=== PATIENT | female | born 1975 | race Caucasian/White ===

== ENCOUNTER 2016-11-13 09:14 | Emergency (ER) | payer OTHER ==
[~2016-11-13] VITALS: Ht 160 cm; Wt 79.5 kg
[2016-11-13 09:24] VITALS: BP 174/104; PULSE 95; RESP 12; O2SAT 98
--- NOTE | 2016-11-13 09:47 | ED.REPORT ---
HPI-Extremity Problem Lower Date of Service Nov 13, 2016 ED Provider: Albertina Macias MD Patient is a 41 year old female with a history of hypertension and pseudo- seizures who presents to the ED complaining of right knee pain onset last night after falling. When she fell she reports feeling several pops. She tried to ambulate and felt 2 more pops. The patient states that she went dancing last night and fell. The patient was seen at [facility] this morning but left after they wouldn't give her medications for her high blood pressure. Nursing Notes Stated Complaint: KNEE PAIN Chief Complaint: Extremity Trauma Nursing Notes Reviewed: Yes Allergies: Coded Allergies: No Known Allergies (Unverified Allergy, Unknown, 09/24/14) Scheduled PRN Tramadol (Tramadol) 50 Mg Tablet 50-100 MG PO QID PRN PRN For Pain General Time Seen by MD: 09:35 Chief Complaint Knee injury right Hx Obtained From: Patient Arrived By: Walk-in Onset Occurred: Yesterday Symptom Duration: Since onset Caused by: Fall on ground Location: : Knee right Quality: Painful Severity: Current: Moderate Associated with: Reports: "Pop" felt or heard Exacerbated by: Movement Recent Healthcare: Recent doctor visit Similar Sx Previous: No Past Medical History Past Medical History pseudo-seizures depression fibromyalgia PTSD anxiety Reports: Hypertension Past Surgical History ankle surgery Reports: Cholecystectomy Smoking History Unknown if Ever Smoker Social History Alcohol Use: Denies alcohol use Drug Use: Denies drug use Occupation lives with friend and children, no work or school Ambulatory Status Independent Review of Systems Constitutional: Denies: Chills, Fever Musculoskeletal: Reports: Extremity pain Skin: Denies Itching, Denies Rash Neurologic: Denies: Numbness, Problem walking, Weakness Complete sys rev & neg: except as marked. Respiratory: Denies: Non-productive cough, Shortness of breath Physical Exam Initial Vital Signs Vital Signs (First) Date Time Temp Pulse Resp B/P Pulse Ox O2 Delivery O2 Flow Rate FiO2 11/13/16 09:24 36.4 95 12 174/104 98 Room Air Initial VS: Reviewed Lower Extremity / Pelvis / MS: No deformity, Neurologic intact, Vascular intact Right Knee: Positive: ROM painful, Swelling present... (Mild), Tenderness present... Ankle / Foot: Atraumatic, Inspection NL, No deformity General/Constitutional: Awake, Alert Respiratory / Chest: Atraumatic, No respiratory distress Skin: Atraumatic, Color NL, No rash, Warm, Dry Neurologic: Oriented X3, Speech NL, No motor deficits, No sensory deficits Head / Eyes: Atraumatic, Normocephalic, PERRL, EOMI Upper Extremity / MS: Atraumatic, Full range of motion Psychiatric: Affect NL, Mood NL Re-Eval/Medical Decision Med Decision/Clinical Course Seen at 5:30 this morning at [facility]. X-ray of the knee was done. She was upset and anxious because they were not willing to treat her blood pressure and her mother had a stroke because of blood pressure issues. She herself has pseudoseizures because of her high blood pressure. She is recently started on mirtazapine for anxiety has not taken out this morning. Still hurting significantly then he is becoming more swollen and she is having trouble even keeping ice on it because it hurts so much. Did review records from [facility]. Also reviewed x-ray with [facility]. She does have significantly elevated blood pressure will give her her morning metoprolol mirtazapine tramadol ibuprofen and reevaluate. Recommended knee immobilizer if she is able to tolerated it encouraged her to keep the ice on the knee. She was out drinking and dancing last night. Declines a breathalyzer this morning but has called a friend to come pick her up after evaluation today so she is not driving while still seemingly intoxicated Source of Hx: Old records Summary of Info: X-ray of right knee from [facility] on 11/13/16: Findings: A small join effusion is present. There is no visible fracture. The alignment is normal. No degenerative changes. Electronically signed by: Jaxson Alvarez MD 11/13/16 at 0812 X-ray of the right TIB/FIB from [facility] on 11/13/16: Findings: No acture fracture of the tibia or fibula is present. Mild degenerative changes involve the ankle joint. There is an acessory ossicle adjacent to the tip of the lateral malleolus. The ankle alignment is normal. The lateral view of the knee suggest a small joint effusion. There is no associated fracture. No degenerative changes. Normal alignment. Electronically signed by: Jaxson Alvarez MD 11/13/16 at 0720 Re-Evaluation/Progress #1: Time of Eval: 11:07 Re-Evaluation/Progress Note: Discussed X-ray results from [facility] Re-Evaluation/Progress #2: Time of Eval: 12:29 Re-Evaluation/Progress Note: Discussed plan for discharge. Patient understands and agrees to the plan. All questions were addressed. Counseled Regarding: Diagnosis, Lab results, Need for follow-up, When/why to return to ED Discharge & Departure Impression: Primary Impression: Strain of right knee Encounter type: initial encounter Qualified Code: S86.911A - Strain of unspecified muscle(s) and tendon(s) at lower leg level, right leg, initial encounter Additional Impressions: Effusion, right knee Hypertension Hypertension type: unspecified secondary hypertension Qualified Code: I15.9 - Secondary hypertension, unspecified Anxiety Disposition: Home Discharge Condition All VS Reviewed: Yes Condition: Stable Patient Instructions: Knee Pain (ED), Crutch Instructions (ED) Additional Instructions: Your X-ray was normal and reassuring. There was no evidence of a fracture. You can expect it to be increasingly sore in the next 24-48 hours. You can also try icing for 30 minutes at a time to help with the pain. You can take Tramadol as needed for severe pain. Do not drink alcohol or drive while taking the pain medication. Follow up with the referred orthopedic surgeon in a week if your symptoms do not improve Return to the emergency department if you develop any new or concerning symptoms. Referrals: OTHER,PHYSICIAN (PCP) Reji Barr DO 1 Week Scribe Attestation Portions of this note were transcribed by Mayra Castro. I, Dr. Macias personally performed the history, physical exam and medical decision-making; I reviewed and confirmed the accuracy of the information in the transcribed note. Signed: Osman Jimenez, 11/13/2016 copies to: Reji Barr Shawna L MD Nov 13, 2016 09:47 PATRICE GOMEZ Nov 13, 2016 11:04
[2016-11-13 11:18] VITALS: BP 187/124
[2016-11-13 12:18] VITALS: BP 172/113; PULSE 77; RESP 15; O2SAT 98
[2016-11-13] MEDS ORDERED: TRAM50TA2 PO (12:36)
[2016-11-13 12:45] VITALS: BP 172/113; PULSE 77; RESP 15; O2SAT 98
== END 2016-11-13 12:46 | disposition home or self-care (01) ==
LOC: SED 09:14
DX: S86.911A Strain of unspecified muscle(s) and tendon(s) at lower leg level, right leg, initial encounter (principal); M25.461 Effusion, right knee; I15.9 Secondary hypertension, unspecified; W18.30XA Fall on same level, unspecified, initial encounter; Y93.41 Activity, dancing; Y92.009 Unspecified place in unspecified non-institutional (private) residence as the place of occurrence of the external cause; Y99.8 Other external cause status; F41.9 Anxiety disorder, unspecified; F32.9 Major depressive disorder, single episode, unspecified; F43.10 Post-traumatic stress disorder, unspecified

== ENCOUNTER 2017-01-01 10:07 | Emergency (ER) | payer OTHER ==
[~2017-01-01] VITALS: Ht 160 cm; Wt 77.3 kg
[~2017-01-01 10:07] MED LIST: TRAM50TA2 PO
[2017-01-01 10:11] VITALS: BP 142/90; PULSE 62; RESP 16; O2SAT 99
[2017-01-01] MEDS ORDERED: HYDR12.5 PO (10:16)
[2017-01-01] MEDS ORDERED: TRAZ150T72 PO (10:16)
[2017-01-01] MEDS ORDERED: METO50TA3 PO (10:16)
--- NOTE | 2017-01-01 10:19 | ED.REPORT ---
HPI-Extremity Problem Lower Date of Service Jan 01, 2017 ED Provider: Sabino Ha MD Patient is a 41 year old female with a hx of HTN who presents ot the ED complaining of R knee pain for that last 6 weeks that is worse last night and this morning s/p her "knee cap moved over" and she heard a "pop". Associated symptoms include increased swelling. She denies numbness, tingling, or any other symptoms. She denies falling or striking her knee. Pt is awaiting an MRI due to a possible torn meniscus in her R knee. Her original injury occured on November 13 when she was dancing, pivoted to the R, felt a pop, and fell to the ground. She has been using a brace at crutches. She takes tramadol and Ibuprofen for her pain. Nursing Notes Stated Complaint: RIGHT KNEE INJURY Chief Complaint: Extremity Trauma Nursing Notes Reviewed: Yes Allergies: Coded Allergies: Sulfa (Sulfonamide Antibiotics) (Verified Allergy, Severe, hives, 01/01/17) Scheduled Hydrochlorothiazide (Hydrochlorothiazide) 12.5 Mg Capsule 12.5 MG PO DAILY Metoprolol Tartrate (Metoprolol Tartrate) 50 Mg Tablet 50 MG PO BID Trazodone (Trazodone) 150 Mg Tablet 150 MG PO HS Scheduled PRN Hydrocodone-Acetaminophen 5-325 mg (Hydrocodone-Acetaminophen 5-325 mg) 1 Each Tablet 1 TABLET PO Q4H PRN PRN For Pain Tramadol (Tramadol) 50 Mg Tablet 50-100 MG PO QID PRN PRN For Pain General Time Seen by MD: 10:18 Chief Complaint Knee injury right Hx Obtained From: Patient Arrived By: Wheelchair Onset Occurred: Yesterday Symptom Duration: Since onset Location: : Knee right Quality: Painful Severity: Current: Moderate Severity: Maximum: Moderate Associated with: Reports: Swelling Exacerbated by: Range of motion, Movement Relieved by: Ice, Immobilization, OTC medications, Prescription meds Immunizations: Unknown Recent Healthcare: Recent doctor visit Past Medical History Past Medical History pseudo-seizures depression fibromyalgia PTSD anxiety Reports: Hypertension Past Surgical History ankle surgery Reports: Cholecystectomy Smoking History Unknown if Ever Smoker Social History Alcohol Use: "Social" Drug Use: Denies drug use Occupation lives with friend and children, no work or school Ambulatory Status Independent Review of Systems Review of Systems Note: -tingling Musculoskeletal: Reports: Joint pain, Joint swelling Neurologic: Reports: Problem walking (secondary to pain ), Denies: Numbness Complete sys rev & neg: except as marked. Physical Exam Initial Vital Signs Vital Signs (First) Date Time Temp Pulse Resp B/P Pulse Ox O2 Delivery O2 Flow Rate FiO2 01/01/17 10:11 36.5 62 16 142/90 99 Room Air Initial VS: Reviewed, Vital signs normal Head / Eyes: Atraumatic, Normocephalic Neck: Full range of motion Respiratory: Breath sounds normal, Clear to auscultation, No respiratory distress Cardiovascular: Regular rate & rhythm, Heart sounds normal, Intact distal pulses Abdomen / GI: Soft, Non-tender, No distention Skin: Warm, Dry Neurologic: Alert, Oriented, Nonfocal Lower Extremity / Pelvis / MS: Neurologic intact, Vascular intact Mild swelling of R knee Knee cap not dislocated tender about the lateral meniscus No redness, warmth, or signs of septic arthritis Ankle / Foot: Inspection NL, Neurologic intact, Vascular intact Re-Eval/Medical Decision Med Decision/Clinical Course Patient is a 41 year old female with a hx of HTN who presents ot the ED complaining of R knee pain for that last 6 weeks that is worse last night and this morning s/p her "knee cap moved over" and she heard a "pop". Associated symptoms include increased swelling. She denies numbness, tingling, or any other symptoms. She denies falling or striking her knee. Pt is awaiting an MRI due to a possible torn meniscus in her R knee. Her original injury occured on November 13 when she was dancing, pivoted to the R, felt a pop, and fell to the ground. She has been using a brace at crutches. She takes tramadol and Ibuprofen for her pain. Here in the emergency department the patient is afebrile with stable vital signs and in no apparent distress. Examination of the knee reveals no evidence of patellar dislocation though she describes what sounds like possible patellar subluxation. Most of her history is suggestive of a meniscal injury and she is already seen an orthopedic surgeon who has clinically diagnosed her with a meniscal injury. She is previously had an x- ray demonstrated no acute fractures. She has a mild swelling of her need though there is no warmth, redness, fever or history suggestive of septic arthritis. She is neurovascularly intact in the affected extremity and there are no clinical findings suggestive of DVT. I discussed with the patient we could obtain an x-ray today but that would likely not be of much diagnostic utility. She does not desire another x-ray. She was treated with Toradol and oxycodone for pain. Her knee was immobilized. She already has crutches. She was provided with a limited supply of [place] for pain. She will continue NSAIDs as well. She will follow up with her orthopedic surgeon on an outpatient basis and is currently awaiting an outpatient MRI. The patient is comfortable with this plan. Prior to discharge follow-up and return precautions were reviewed in detail with the patient who verbalized understanding and agreement with the plan. The patient was discharged in stable condition. Re-Evaluation/Progress : Time of Eval: 10:39 Re-Evaluation/Progress Note: Discussed plan for rigid knee brace, crutches, and decreased weight bearing. Offered xray which pt declines. Discussed plan for discharge. Patient understands and agrees with plan. All questions addressed at this time. Counseled Regarding: Diagnosis, Need for follow-up, When/why to return to ED Discharge & Departure Impression: Primary Impression: Right knee pain Chronicity: unspecified Qualified Code: M25.561 - Pain in right knee Additional Impressions: Injury of meniscus of right knee Encounter type: subsequent encounter Qualified Code: S83.91XD - Sprain of unspecified site of right knee, subsequent encounter Swelling of right knee joint Disposition: Home Discharge Condition All VS Reviewed: Yes Condition: Stable Additional Instructions: Thank you for seeking care at the emergency room. It is difficult for us to make definitive diagnoses in the ED but we believe that you are experiencing an exacerbation of pain from your knee injury. Our primary goal today in the ED was to evaluate you for any life-threatening conditions. Your evaluation was reassuring. Immobilize your knee using the rigid brace. Avoid bearing weight and use crutches for mobility. Use rest, ice, and elevation to help with swelling. Please use Ibuprofen (up to 600mg, 3 times a day) for pain. Stop using Ibuprofen if you experience upset stomach. You will be discharged with a prescription for Vicodin. Use this for more extreme pain. Please see precautions below. You should follow-up with your primary doctor in the next week. You should return to the ED immediately if you develop fevers, vomiting, cough, shortness of breath, chest pain, lightheadedness, weakness, numbness, increased swelling, redness, warmth, or any other concerning signs or symptoms. Thank you for letting us partake in your care today. You have been prescribed a narcotic for pain relief. These drugs are usually combined with acetaminophen (Tylenol#3, Percocet, Darvocet, Anexsia, Vicodin) or aspirin (Empirin#3, Percodan, Synalogs-DC) for increased effect. Narcotics act on the central nervous system to reduce pain; they also impair mental alertness and physical abilities. We advise you not to drink alcohol, drive a car, or operate dangerous equipment when you are taking these drugs. You can lessen stomach irritation from your medicine by taking it with meals or a full glass of water. Common side effects of narcotics are: Nausea and vomiting, heartburn, constipation, dizziness, sleepiness, and mood changes. If you have bothersome side effects or symptoms of an allergic reaction (itching, hives, rash), stop taking your medicine and call your doctor or the emergency room right away. Please keep your narcotic medicine well out of the reach of children. Referrals: OTHER,PHYSICIAN (PCP) Scribe Attestation Portions of this note were transcribed by Patrice Cook. I, Dr. Ha personally performed the history, physical exam and medical decision-making; I reviewed and confirmed the accuracy of the information in the transcribed note. Signed by: Osman Hernandez, 01/01/17 Sabino Ha MD Jan 01, 2017 10:19 PATRICE COOK Jan 01, 2017 10:41
[2017-01-01] MEDS ORDERED: HYDR-4003 PO (10:50)
[2017-01-01 11:41] VITALS: BP 136/84; PULSE 60; RESP 18; O2SAT 99
== END 2017-01-01 11:41 | disposition home or self-care (01) ==
LOC: SED 10:07
DX: S83.8X1A Sprain of other specified parts of right knee, initial encounter (principal); M25.561 Pain in right knee; X50.0XXA Overexertion from strenuous movement or load, initial encounter; Y92.9 Unspecified place or not applicable; Y93.89 Activity, other specified; Y99.8 Other external cause status; M25.461 Effusion, right knee; I10 Essential (primary) hypertension; F41.8 Other specified anxiety disorders; M79.7 Fibromyalgia; Z88.2 Allergy status to sulfonamides
CPT/HCPCS: 96372; 99283; J1885

== ENCOUNTER 2017-01-04 19:33 | Emergency (ER) | payer OTHER ==
[~2017-01-04] VITALS: Ht 160 cm; Wt 77.3 kg
[~2017-01-04 19:33] MED LIST changes: +HYDR-4003 PO; +HYDR12.5 PO; +METO50TA3 PO; +TRAZ150T72 PO
[2017-01-04 19:44] VITALS: BP 148/103; PULSE 98; RESP 16; O2SAT 99
--- NOTE | 2017-01-04 20:20 | ED.REPORT ---
HPI-Extremity Problem Lower Date of Service Jan 04, 2017 ED Provider: Baljit Ignacio PA-C [facility] is a 41 year female with a history of hypertension who presents to emergency department for right knee pain. Patient reports injuring the knee while dancing. She reports hearing a pop and falling to the ground. X-rays performed that time showed no fracture. She reports having an MRI done today which diagnosed an ACL tear. Patient states she will be seeing Dr. Gustafson at [facility], but does not have an appointment. She reports taking 800 mg ibuprofen daily as well as have a supply of Vicodin which is not controlling her pain sufficiently. Nursing Notes Stated Complaint: POSS TORN ACL/RIGHT KNEE Chief Complaint: Extremity Trauma Nursing Notes Reviewed: Yes Allergies: Coded Allergies: Sulfa (Sulfonamide Antibiotics) (Verified Allergy, Severe, hives, 01/04/17) Scheduled Hydrochlorothiazide (Hydrochlorothiazide) 12.5 Mg Capsule 12.5 MG PO DAILY Metoprolol Tartrate (Metoprolol Tartrate) 50 Mg Tablet 50 MG PO BID Trazodone (Trazodone) 150 Mg Tablet 150 MG PO HS Scheduled PRN Hydrocodone-Acetaminophen 5-325 mg (Hydrocodone-Acetaminophen 5-325 mg) 1 Each Tablet 1 TABLET PO Q4H PRN PRN For Pain Tramadol (Tramadol) 50 Mg Tablet 50-100 MG PO QID PRN PRN For Pain General Time Seen by MD: 20:01 Chief Complaint Knee injury right Past Medical History Past Medical History pseudo-seizures depression fibromyalgia PTSD anxiety Reports: Hypertension Past Surgical History ankle surgery Reports: Cholecystectomy Smoking History Unknown if Ever Smoker Social History Alcohol Use: "Social" Drug Use: Denies drug use Occupation lives with friend and children, no work or school Ambulatory Status Independent Review of Systems Negative unless stated otherwise in history of present illness Physical Exam General: Well appearing, well developed, well nourished, no acute distress. Right knee: Normal to inspection, medial joint line tenderness. Right foot ankle: DP and PT pulses 2+, foot is warm, normal to inspection. Head: Atraumatic, normocephalic. Eyes: No scleral icterus or injection. No discharge. Vision grossly intact. ENT: Voice clear, hearing grossly intact. Respiratory: No respiratory distress, no increased work of breathing. Speaks in complete sentences. Skin: Warm and dry. Neurological: Grossly nonfocal. Psychological: alert and oriented. Speech appropriate, linear and logical. Behavior appropriate. Initial Vital Signs Vital Signs (First) Date Time Temp Pulse Resp B/P Pulse Ox O2 Delivery O2 Flow Rate FiO2 01/04/17 19:44 37.1 98 16 148/103 99 Room Air Elevated blood pressure Re-Eval/Medical Decision Med Decision/Clinical Course 41-year-old female with a history of hypertension. Emergency Department requesting pain medication for a knee injury that occurred approximately 6 weeks ago. Seen twice previously in this department for this injury. Patient reports receiving an MRI today which diagnosed and ACL tear. Patient states she will be seeing her orthopedic surgeon, Dr. Gustafson but does not have an appointment. I cannot find an MRI in our system. Patient states it was performed at [facility]. The foot is neurovascularly intact. Offered ketorolac injection which is accepted. Declined prescription for opiate pain medications. Advised naproxen 500 mg every 12 hours along with the Vicodin patient reports she has on hand. Patient departed prior to receiving ketorolac or discharge instructions. I did however discuss follow-up, emergency return precautions and the patient verbalized understanding of and consent to the plan. Discharge & Departure Departure Notes This patient departed prior to receiving written discharge instructions, however she did see verbal instructions. I had declined to prescribe her opiate pain medications and had instead offered ketorolac here in the emergency department which she had initially accepted but departed prior to receiving. Impression: Primary Impression: Right knee pain Chronicity: acute Qualified Code: M25.561 - Pain in right knee Disposition: Home Discharge Condition All VS Reviewed: Yes Condition: Stable Referrals: NOPCP (PCP) EDSupervising Provider for APC: Adam Bird MD, Seth PA-C Jan 04, 2017 20:20
== END 2017-01-04 20:40 | disposition home or self-care (01) ==
LOC: SED 19:33
DX: M25.561 Pain in right knee (principal); W18.39XA Other fall on same level, initial encounter; Y93.41 Activity, dancing; Y92.89 Other specified places as the place of occurrence of the external cause; Y99.8 Other external cause status; I10 Essential (primary) hypertension; M79.7 Fibromyalgia; F41.8 Other specified anxiety disorders; Z90.49 Acquired absence of other specified parts of digestive tract; Z98.890 Other specified postprocedural states; Z88.2 Allergy status to sulfonamides